=== PATIENT | female | born 1990 | race Asian ===

== ENCOUNTER 2019-08-25 14:53 | Outpatient (CLI) | payer OTHER | END 2019-08-25 15:08 | disposition home or self-care (01) | LOC: RAD 14:53 | PROVIDERS: ATTEND Chiropractor | DX: M54.6 Pain in thoracic spine (principal); M99.02 Segmental and somatic dysfunction of thoracic region ==

== ENCOUNTER 2019-11-24 11:32 | Emergency (ER) | payer OTHER ==
[~2019-11-24] VITALS: Ht 167.6 cm; Wt 67.6 kg
[2019-11-24] MEDS ORDERED: IBUPROFEN800 MG PO (13:07)
== END 2019-11-24 14:29 | disposition home or self-care (01) ==
LOC: ER 11:32
DX: S60.052A Contusion of left little finger without damage to nail, initial encounter (principal); W22.8XXA Striking against or struck by other objects, initial encounter; Y93.89 Activity, other specified; Y92.098 Other place in other non-institutional residence as the place of occurrence of the external cause; Y99.8 Other external cause status

== ENCOUNTER 2019-12-05 11:48 | Outpatient (CLI) | payer OTHER ==
[~2019-12-05 11:48] MED LIST: IBUPROFEN800 MG PO
== END 2019-12-05 12:04 | disposition home or self-care (01) ==
LOC: RAD 11:48
PROVIDERS: ATTEND Orthopaedic Surgery
DX: M79.645 Pain in left finger(s) (principal)

== ENCOUNTER → 2020-10-13 | Emergency (ER) | payer OTHER ==
[~2020-10-13] VITALS: Ht 170.2 cm; Wt 64.9 kg
[~2020-10-13] MED LIST changes: +KETO10TA2 PO; +ORPHENADRINE C100 MG PO
== END | disposition home or self-care (01) ==
LOC: ER 13:34
DX: M94.0 Chondrocostal junction syndrome [Tietze] (principal); M79.18 Myalgia, other site

== ENCOUNTER 2020-10-14 10:52 | Emergency (ER) | payer OTHER ==
[~2020-10-14] VITALS: Ht 170.2 cm; Wt 64.9 kg
[~2020-10-14 10:52] MED LIST changes: -KETO10TA2 PO; -ORPHENADRINE C100 MG PO
[2020-10-14] MEDS ORDERED: ORPHENADRINE C100 MG PO (16:23)
[2020-10-14] MEDS ORDERED: KETO10TA2 PO (16:23)
== END 2020-10-14 16:27 ==
LOC: ER 10:52
DX: S20.212A Contusion of left front wall of thorax, initial encounter (principal); X50.9XXA Other and unspecified overexertion or strenuous movements or postures, initial encounter; Y93.B3 Activity, free weights; Y92.018 Other place in single-family (private) house as the place of occurrence of the external cause; Y99.8 Other external cause status

== ENCOUNTER 2022-05-14 11:40 | Emergency (ER) | payer OTHER ==
[~2022-05-14] VITALS: Ht 152.4 cm; Wt 61.2 kg
[~2022-05-14 11:40] MED LIST changes: +KETO10TA2 PO; +ORPHENADRINE C100 MG PO
== END 2022-05-14 16:12 | disposition home or self-care (01) ==
LOC: ER 11:40
DX: K52.9 Noninfective gastroenteritis and colitis, unspecified (principal)